=== PATIENT | female | born 1955 | race Caucasian/White ===

== ENCOUNTER 2017-04-24 08:05 | Outpatient (CLI) | payer BC ==
[2017-04-24 08:17] LABS: Basophils % (Auto) 0.8 % (0.0-1.8); Eosinophils % (Auto) 2.5 % (0.0-4.3); Hematocrit 36.8 % (30.3-42.9); Hemoglobin 12.1 gm/dl (10.1-14.3); Mean Corpuscular HGB Conc 33 % (30-34); Mean Corpuscular Hemoglobin 27 pg (28-32); Mean Corpuscular Volume 81 fl (79-97); Platelet Count 183 K/mm3 (140-440); Red Blood Count 4.54 M/mm3 (3.65-5.03); Red Cell Distribution Width 14.9 % (13.2-15.2); White Blood Count 5.7 K/mm3 (4.5-11.0)
[2017-04-24 08:36] LABS: Alanine Aminotransferase 44 units/L (7-56); Albumin/Globulin Ratio 1.2 %; Alkaline Phosphatase 104 units/L (35-129); Anion Gap 14 mmol/L; Blood Urea Nitrogen 18 mg/dL (7-17); Carbon Dioxide 28 mmol/L (22-30); Chloride 105.3 mmol/L (98-107); Cholesterol 151 mg/dL (50-199); Glucose 91 mg/dL (65-100); HDL Cholesterol 65 mg/dL (40-59); LDL Cholesterol,Direct 76 mg/dL (50-130); Potassium 3.9 mmol/L (3.6-5.0); Sodium 143 mmol/L (137-145); Total Protein 7.4 g/dL (6.3-8.2); Triglycerides 53 mg/dL (2-149)
[2017-04-24 11:08] LABS: Bilirubin,Urine NEG (Negative); Blood,Urine MOD (Negative); Ketones,Urine NEG (Negative); Leukocyte Esterase,Urine TR (Negative); Mucus,Urine FEW /HPF; Nitrite,Urine NEG (Negative); Protein,Urine <15 mg/dL mg/dL (Negative); RBC,Urine < 1.0 /HPF (0.0-6.0); Urobilinogen,Urine < 2.0 mg/dL (<2.0)
== END 2017-04-24 08:06 | disposition home or self-care (01) ==
LOC: LAB 08:05
PROVIDERS: ATTEND Family Medicine
DX: I10 Essential (primary) hypertension (principal); E78.2 Mixed hyperlipidemia; R31.1 Benign essential microscopic hematuria; Z79.899 Other long term (current) drug therapy
CPT/HCPCS: 36415; 80053; 80061; 81001; 85025

== ENCOUNTER 2017-10-14 07:09 | Outpatient (CLI) | payer BC ==
--- NOTE | 2017-10-14 09:26 | Mammography Report ---
Bilateral digital screening mammogram including tomosynthesis and CAD. Comparison study is dated October 09, 2016. Findings: There is heterogeneous density of the fiber glandular tissue. There are no suspicious microcalcifications or areas of architectural distortion. In the posterior upper right breast, there is a 5 mm circumscribed round nodular asymmetry which demonstrates benign features and has not changed since the previous study. No additional focal abnormalities are seen. Impression: Stable benign findings. BI-RADS code: 2. Recommendation: Annual screening.
== END 2017-10-14 07:10 | disposition home or self-care (01) ==
LOC: MAMMO 07:09
PROVIDERS: ATTEND Obstetrics & Gynecology
DX: Z12.31 Encounter for screening mammogram for malignant neoplasm of breast (principal)
CPT/HCPCS: 77063; G0202; 77067

== ENCOUNTER 2018-04-21 10:13 | Outpatient (CLI) | payer BC ==
[2018-04-21 11:24] LABS: Basophils % (Auto) 0.7 % (0.0-1.8); Eosinophils # (Auto) 0.1 K/mm3 (0.0-0.4); Eosinophils % (Auto) 1.8 % (0.0-4.3); Hematocrit 38.6 % (30.3-42.9); Hemoglobin 12.6 gm/dl (10.1-14.3); Lymphocytes # (Auto) 2.2 K/mm3 (1.2-5.4); Lymphocytes % (Auto) 37.1 % (13.4-35.0); Mean Corpuscular HGB Conc 33 % (30-34); Mean Corpuscular Hemoglobin 27 pg (28-32); Mean Corpuscular Volume 82 fl (79-97); Monocytes # (Auto) 0.4 K/mm3 (0.0-0.8); Monocytes % (Auto) 6.5 % (0.0-7.3); Platelet Count 195 K/mm3 (140-440); Red Cell Distribution Width 14.7 % (13.2-15.2)
[2018-04-21 11:26] LABS: Bilirubin,Urine NEG (Negative); Blood,Urine MOD (Negative); Color,Urine Yellow (Yellow); Protein,Urine <15 mg/dL mg/dL (Negative); Urobilinogen,Urine < 2.0 mg/dL (<2.0); WBC,Urine < 1.0 /HPF (0.0-6.0)
--- NOTE | 2018-04-21 11:54 | XRay Report ---
ROUTINE CHEST, TWO VIEWS: HISTORY: Hypertension. The trachea, heart, mediastinal contour, lung brown and bony thorax are unremarkable. IMPRESSION: Unremarkable chest x-ray.
[2018-04-21 16:51] LABS: BUN/Creatinine Ratio 24; Blood Urea Nitrogen 17 mg/dL (7-17)
[2018-04-21 16:52] LABS: Alanine Aminotransferase 24 units/L (7-56); Calcium 9.1 mg/dL (8.4-10.2); Chol/HDL Ratio 3.16 %; HDL Cholesterol 66 mg/dL (40-59); Hemolysis Index 4; LDL Cholesterol,Direct 128 mg/dL (50-130)
== END 2018-04-21 10:14 | disposition home or self-care (01) ==
LOC: XRAY 10:13
PROVIDERS: ATTEND Surgery Plastic and Reconstructive Surgery
DX: I10 Essential (primary) hypertension (principal); E78.2 Mixed hyperlipidemia; Z79.899 Other long term (current) drug therapy
CPT/HCPCS: 36415; 71046; 80053; 80061; 81001; 83036; 85025

== ENCOUNTER 2018-11-09 06:58 | Outpatient (CLI) | payer BC ==
--- NOTE | 2018-11-09 14:58 | Mammography Report ---
BILATERAL DIGITAL SCREENING MAMMOGRAM with CAD : 11/09/18 06:58:00 CLINICAL: Routine screening. COMPARISON:10/14/17 FINDINGS: The breasts are heterogeneously dense, which may obscure small masses.A 5.3 x 3.5 x 4.2 cm benign right retroareolar hamartoma is unchanged compared to previous exams. It is mostly fatty with a thin capsule. No new mass, architectural distortion or suspicious calcifications. IMPRESSION: No mammographic evidence of malignancy. BI-RADS CATEGORY: 2 -- Benign RECOMMENDATION: Routine mammographic screening in one year. COMMENT: Patient follow-up letters are generated by our [employer] application.
--- NOTE | 2018-11-10 00:48 | Ultrasound Report ---
FINAL REPORT EXAM: US PELVIC COMPLETE HISTORY: PELVIC MASS LOWER RIGHT QUADRANT TECHNIQUE: Transvaginal imaging was obtained of the pelvis. Comparison is made to the study of 10/11. FINDINGS: The uterus is anteverted measuring 6.1 cm x 2.9 cm x 4.4 cm. The endometrial thickness is 3 mm. In th e posterior wall of the uterus is a partially calcified fibroid measuring 2.2 cm x 2.3 cm x 2 cm. Thi s is not changed significantly since previous study. Additional fibroids are seen on the study. One i s in the anterior wall measuring 2.6 cm x 2.4 cm x 3.5 cm. A smaller fibroid is seen in the posterior wall measuring 1.4 cm x 1.1 cm x 1.1 cm. The ovaries are appropriate size contour and echotexture. The right ovary measures 2 cm x 0.7 cm x 1. 9 cm. The left ovary measures 0.9 cm 1.2 cm x 1.3 cm. Free fluid is not seen IMPRESSION: Multiple fibroids in the uterus as described. 2 additional fibroids are seen in the study since the p revious exam.
--- NOTE | 2018-11-10 01:04 | Ultrasound Report ---
FINAL REPORT EXAM: US TRANSVAGINAL HISTORY: PELVIC MASS LOWER RIGHT QUADRANT TECHNIQUE: Transvaginal imaging was obtained of the pelvis. Comparison is made study of 10/11/2016. FINDINGS: The uterus is anteverted measuring 6.1 cm x 2.9 cm x 4.4 cm. The endometrial thickness is 3 mm. There are multiple fibroids in the uterus. There is fibroid in the posterior wall measuring 2.2 cm x 2.3 c m x 2 cm with shadowing calcifications. This is unchanged the previous study. There additional fibroi ds, 1 of which is in the anterior wall measuring 2.6 cm x 2.4 cm x 3.5 cm. An additional fibroid is s een in the posterior wall measuring 1.4 cm x 1.1 cm x 1.1 cm. An additional small fibroid is seen in the anterior wall measuring 1.3 cm x 1 cm x 1.8 cm. Free fluid is not seen. The ovaries are appropriate size contour and echotexture. The right ovary measures 2 cm x 0.7 cm x 1. 9 cm. The left lobe measures 0.9 cm x 1.2 cm x 1.3 cm. IMPRESSION: Multiple fibroids as described. No adnexal masses or fluid collections.
== END 2018-11-09 06:59 | disposition home or self-care (01) ==
LOC: MAMMO 06:58
PROVIDERS: ATTEND Obstetrics & Gynecology
DX: Z12.31 Encounter for screening mammogram for malignant neoplasm of breast (principal); D25.9 Leiomyoma of uterus, unspecified
CPT/HCPCS: 76830; 76856; 77067

== ENCOUNTER 2019-09-13 08:23 | Outpatient (CLI) | payer BC ==
[2019-09-13 08:51] LABS: Basophils # (Auto) 0.1 K/mm3 (0.0-0.1); Basophils % (Auto) 1.1 % (0.0-1.8); Eosinophils # (Auto) 0.1 K/mm3 (0.0-0.4); Eosinophils % (Auto) 1.8 % (0.0-4.3); Hemoglobin 12.5 gm/dl (10.1-14.3); Lymphocytes # (Auto) 2.1 K/mm3 (1.2-5.4); Mean Corpuscular HGB Conc 33 % (30-34); Mean Corpuscular Volume 82 fl (79-97); Monocytes # (Auto) 0.5 K/mm3 (0.0-0.8); Platelet Count 207 K/mm3 (140-440); Red Blood Count 4.61 M/mm3 (3.65-5.03); Red Cell Distribution Width 14.6 % (13.2-15.2)
[2019-09-13 09:08] LABS: Bilirubin,Urine NEG (Negative); Blood,Urine MOD (Negative); Color,Urine Straw (Yellow); Protein,Urine <15 mg/dL mg/dL (Negative); Urobilinogen,Urine < 2.0 mg/dL (<2.0)
[2019-09-13 09:10] LABS: Alanine Aminotransferase 14 units/L (7-56); Albumin 4.3 g/dL (3.9-5); BUN/Creatinine Ratio 29; Blood Urea Nitrogen 23 mg/dL (7-17); Calcium 9.3 mg/dL (8.4-10.2); Chol/HDL Ratio 3.85 %; HDL Cholesterol 60 mg/dL (40-59); Hemolysis Index 1; LDL Cholesterol,Direct 162 mg/dL (50-130)
[2019-09-13 09:21] LABS: WBC,Urine < 1.0 /HPF (0.0-6.0)
--- NOTE | 2019-09-13 09:23 | XRay Report ---
CHEST 2 VIEWS INDICATION: ANNUAL PHYSICAL EXAM. COMPARISON: 04/21/2018 FINDINGS: Support devices: None. Heart: Within normal limits. Pulmonary vasculature: Normal. Lungs/pleura: No acute air space or interstitial disease. No pneumothorax. Additional findings: Aortic tortuosity unchanged since the last exam. IMPRESSION: 1. No acute findings. 2. Hypertensive changes in the aorta. Signer Name: Willian Kenney MD Signed: 09/13/2019 9:19 AM Workstation Name: [id number]
== END 2019-09-13 08:24 | disposition home or self-care (01) ==
LOC: LAB 08:23
PROVIDERS: ATTEND Family Medicine
DX: Z12.2 Encounter for screening for malignant neoplasm of respiratory organs (principal); Z00.00 Encounter for general adult medical examination without abnormal findings; Z79.899 Other long term (current) drug therapy; I10 Essential (primary) hypertension
CPT/HCPCS: 36415; 71046; 80053; 80061; 81001; 83036; 84443; 85025

== ENCOUNTER 2019-10-13 08:26 | Outpatient (CLI) | payer BC | END 2019-10-13 08:27 | disposition home or self-care (01) | LOC: LAB 08:26 | PROVIDERS: ATTEND Obstetrics & Gynecology | DX: Z12.4 Encounter for screening for malignant neoplasm of cervix (principal); Z11.8 Encounter for screening for other infectious and parasitic diseases; N76.0 Acute vaginitis | CPT/HCPCS: 36415 ==

== ENCOUNTER 2019-11-17 11:57 | Outpatient (CLI) | payer BC ==
--- NOTE | 2019-11-17 13:45 | Mammography Report ---
DIGITAL SCREENING MAMMOGRAM WITH CAD, 11/17/2019 INDICATION: Routine screening mammography. TECHNIQUE: Digital bilateral 2D mammography was obtained in the craniocaudal and mediolateral obliq ue projections. This examination was interpreted with the benefit of Computer-Aided Detection analysi s. COMPARISON: 11/09/2018 and 10/14/2017 FINDINGS: Breast Density: The breasts are heterogeneously dense, which may obscure small masses. There is no evidence of dominant mass, suspicious calcifications or architectural distortion in eithe r breast. IMPRESSION: No mammographic evidence of malignancy. Follow up recommendation: Routine yearly BI-RADS Category 1: Negative. A "normal" or negative report should not discourage follow up or biopsy of a clinically significant f inding. A written summary of these findings will be mailed to the patient. The patient will be entered into a mammography reporting system which will generate a reminder letter for the patient's next appointmen t at the appropriate interval. The [employer] recommends yearly mammograms starting at age 40 and continuing as l katja as a woman is in good health. Breast MRI is recommended for women with an approximate 20-25% or greater lifetime risk of breast cancer, including women with a strong family history of breast or ova ignacio cancer or who have been treated for Hodgkin's disease. Signer Name: Willian Kenney MD Signed: 11/17/2019 1:40 PM Workstation Name: [id number]
== END 2019-11-17 11:58 | disposition home or self-care (01) ==
LOC: MAMMO 11:57
PROVIDERS: ATTEND Obstetrics & Gynecology
DX: Z12.31 Encounter for screening mammogram for malignant neoplasm of breast (principal)
CPT/HCPCS: 77067

== ENCOUNTER 2020-10-18 11:56 | Outpatient (CLI) | payer BC | END 2020-10-18 11:57 | disposition home or self-care (01) | LOC: LAB 11:56 | PROVIDERS: ATTEND Obstetrics & Gynecology | DX: Z01.419 Encounter for gynecological examination (general) (routine) without abnormal findings (principal) | CPT/HCPCS: 36415; 87591 ==

== ENCOUNTER 2020-12-07 12:15 | Outpatient (CLI) | payer BC ==
--- NOTE | 2020-12-07 14:17 | Mammography Report ---
DIGITAL SCREENING MAMMOGRAM WITH CAD, 12/07/2020 CLINICAL INFORMATION / INDICATION: Routine screening mammography. SCREENING MAMMOGRAM TECHNIQUE: Digital bilateral 2D mammography was obtained in the craniocaudal and mediolateral obliqu e projections. This examination was interpreted with the benefit of Computer-Aided Detection analysis . COMPARISON: Prior mammograms 11/17/2019 and 11/09/2018 FINDINGS: Breast Density: The breasts are heterogeneously dense, which may obscure small masses. No dominant mass, suspicious calcifications, or architectural distortion in either breast. There has been no significant change compared with the prior examinations. IMPRESSION: No mammographic evidence of malignancy. Follow up recommendation: Routine yearly BI-RADS Category 1: Negative. A "normal" or negative report should not discourage follow up or biopsy of a clinically significant f inding. A written summary of these findings will be mailed to the patient. The patient will be entered into a mammography reporting system which will generate a reminder letter for the patient's next appointmen t at the appropriate interval. The [employer] recommends yearly mammograms starting at age 40 and continuing as l katja as a woman is in good health. Breast MRI is recommended for women with an approximate 20-25% or greater lifetime risk of breast cancer, including women with a strong family history of breast or ova ignacio cancer or who have been treated for Hodgkin's disease. Signer Name: Joanna Herrera MD Signed: 12/07/2020 2:12 PM Workstation Name: [email or web address]
== END 2020-12-07 12:16 | disposition home or self-care (01) ==
LOC: MAMMO 12:15
PROVIDERS: ATTEND Obstetrics & Gynecology
DX: Z12.31 Encounter for screening mammogram for malignant neoplasm of breast (principal)
CPT/HCPCS: 77067

== ENCOUNTER 2021-01-17 06:59 | Outpatient (CLI) | payer BC ==
[2021-01-17 07:27] LABS: Basophils # (Auto) 0.1 K/mm3 (0.0-0.1); Basophils % (Auto) 1.7 % (0.0-1.8); Eosinophils # (Auto) 0.1 K/mm3 (0.0-0.4); Eosinophils % (Auto) 1.7 % (0.0-4.3); Hematocrit 37.2 % (30.3-42.9); Hemoglobin 12.3 gm/dl (10.1-14.3); Lymphocytes % (Auto) 34.4 % (13.4-35.0); Mean Corpuscular HGB Conc 33 % (30-34); Mean Corpuscular Volume 84 fl (79-97); Monocytes # (Auto) 0.4 K/mm3 (0.0-0.8); Monocytes % (Auto) 7.8 % (0.0-7.3); Platelet Count 200 K/mm3 (140-440); Red Blood Count 4.41 M/mm3 (3.65-5.03); Red Cell Distribution Width 14.4 % (13.2-15.2)
[2021-01-17 07:29] LABS: Bilirubin,Urine NEG (Negative); Blood,Urine SM (Negative); Color,Urine Straw (Yellow); Protein,Urine <15 mg/dL mg/dL (Negative); Urobilinogen,Urine < 2.0 mg/dL (<2.0)
[2021-01-17 07:44] LABS: Alanine Aminotransferase 52 units/L (7-56); Albumin 4.2 g/dL (3.9-5); BUN/Creatinine Ratio 24; Blood Urea Nitrogen 22 mg/dL (7-17); Calcium 8.9 mg/dL (8.4-10.2); Chol/HDL Ratio 2.91 %; HDL Cholesterol 67 mg/dL (40-59); Hemolysis Index 15; LDL Cholesterol,Direct 129 mg/dL (50-130)
--- NOTE | 2021-01-17 07:51 | XRay Report ---
CHEST 2 VIEWS INDICATION: HYPERTENSION,SCREENING FOR RESPIRATORY ORGAN CANCER. COMPARISON: 09/13/2019 FINDINGS: Support devices: None. Heart: Within normal limits. Lungs/pleura: No acute air space or interstitial disease. No pneumothorax. Additional findings: None. IMPRESSION: Unremarkable chest films. No change since 09/13/2019. Signer Name: Gurmeet Riley Jr, MD Signed: 01/17/2021 7:46 AM Workstation Name: [id number]
== END 2021-01-17 07:00 | disposition home or self-care (01) ==
LOC: XRAY 06:59
PROVIDERS: ATTEND Family Medicine
DX: Z00.00 Encounter for general adult medical examination without abnormal findings (principal); Z13.1 Encounter for screening for diabetes mellitus; Z79.899 Other long term (current) drug therapy
CPT/HCPCS: 36415; 71046; 80053; 80061; 81001; 83036; 84443; 85025

== ENCOUNTER 2021-02-15 09:38 | Outpatient (CLI) | payer BC ==
--- NOTE | 2021-02-15 14:52 | Mammography Report ---
DEXA BONE DENSITY SCAN INDICATION / CLINICAL INFORMATION: SCREENING FOR OSTEOPOROSIS Z13.820 /Z78.0 MENOPAUSE. 65 years Female COMPARISON: None available. LUMBAR SPINE, L1-L4: - Bone mineral density (BMD) = 0.807 g/cm2. - T-score = -3.1 - Z-score = -1.1 Change (%) since most recent prior (if available): None available. LEFT HIP, : - Bone mineral density (BMD) = 0.695 g/cm2. - T-score = -1.8 - Z-score = -0.5 Change (%) since most recent prior (if available): None available. IMPRESSION: 1. WHO Classification: Osteoporosis. Fracture Risk: High. Note: 10-Year Fracture Risk (FRAX) not reported. This DEXA unit lacks FRAX functionality. BMD Reporting Guidelines (ISCD, 2015) BMD Reporting in Postmenopausal Women and in Men Age 50 and Older - T-scores are preferred. - The WHO densitometric classification is applicable. BMD Reporting in Females Prior to Menopause and in Males Younger Than Age 50 - Z-scores, not T-scores, are preferred. This is particularly important in children. - A Z-score of -2.0 or lower is defined as below the expected range for age, and a Z-score above -2.0 is within the expected range for age. - Osteoporosis cannot be diagnosed in men under age 50 on the basis of BMD alone. - The WHO diagnostic criteria may be applied to women in the menopausal transition. http://www.iscd.org/official-positions/8120-bjxq-wsphcskn-positions-adult/ Signer Name: Christiano Chang MD Signed: 02/15/2021 2:48 PM Workstation Name: [id number]
== END 2021-02-15 09:39 | disposition home or self-care (01) ==
LOC: SPVWC 09:38
PROVIDERS: ATTEND Family Medicine
DX: Z13.820 Encounter for screening for osteoporosis (principal); M81.0 Age-related osteoporosis without current pathological fracture; Z78.0 Asymptomatic menopausal state
CPT/HCPCS: 77080

== ENCOUNTER 2021-12-25 08:05 | Emergency (ER) | payer BC ==
[2021-12-25] MEDS ORDERED: LIDOCAINE 1%/EPINEPHRINE 1:100,000 VIAL (20 ML) INFILTRATI NR (09:15)
== END 2021-12-25 09:42 | disposition home or self-care (01) ==
LOC: ED 08:05
DX: S61.219A Laceration without foreign body of unspecified finger without damage to nail, initial encounter (principal); X58.XXXA Exposure to other specified factors, initial encounter; Y93.89 Activity, other specified; Y92.89 Other specified places as the place of occurrence of the external cause; Y99.8 Other external cause status
CPT/HCPCS: 99282

== ENCOUNTER 2021-12-26 12:03 | Outpatient (CLI) | payer BC ==
[2021-12-26 22:30] LABS: Hepatitis B Surface Antigen Non-Reactive (Negative); Hepatitis C Virus Antibody Non-Reactive (NonReactive)
== END 2021-12-26 12:04 | disposition home or self-care (01) ==
LOC: LAB 12:03
PROVIDERS: ATTEND Obstetrics & Gynecology
DX: Z01.419 Encounter for gynecological examination (general) (routine) without abnormal findings (principal)
CPT/HCPCS: 36415; 80074; 86592; 86689

== ENCOUNTER 2022-01-01 10:32 | Emergency (ER) | payer BC ==
[2022-01-01 12:12] VITALS: BP 153/67
--- NOTE | 2022-01-01 12:38 | Emergency Department Report ---
Suture/Staple Removal - [facility] Chief Complaint: Laceration/Recheck/Suture Stated Complaint: SUTURE REMOVAL Time Seen by Provider: 01/01/22 12:13 When Sutures or Erasto Placed: 5-7 Days Ago Wound Location: Right index finger; denies pain, swelling, drainage ED Review of Systems ROS: Stated complaint: SUTURE REMOVAL Other details as noted in HPI Constitutional: denies: chills, fever, malaise Musculoskeletal: denies: joint swelling, arthralgia Skin: denies: rash, lesions, change in color Neurological: denies: numbness, paresthesias ED Past Medical Hx - Past Medical History Previous Medical History?: Yes Additional medical history: Heart Murmur - Surgical History Past Surgical History?: Yes Additional Surgical History: eye surgery, ectopic - Social History Smoking Status: Never Smoker Substance Use Type: None - Medications Home Medications: Home Medications Medication Instructions Recorded Confirmed Last Taken Type Ibuprofen [Motrin] 800 mg PO Q8HR PRN #20 tablet 08/06/16 Unknown Rx Suture Removal Exam - Exam General: Vital signs noted. No distress. Alert and acting appropriately. Wound: No Pathologic Erythema, No Tenderness, No Drainage, No Pus, No Wound Dehiscence Other Systems: All other systems reviewed and are unremarkable. 2 simple suture noted in dorsal right index finger; no erythema; no purulent drainage; sutures removed; pt tolerated procedure well without any immediate complications ED Course Vital Signs 01/01/22 12:11 Temperature 98.2 F Pulse Rate 53 L Respiratory 18 Rate Blood Pressure 153/67 O2 Sat by Pulse 98 Oximetry Critical care attestation.: If time is entered above; I have spent that time in minutes in the direct care of this critically ill patient, excluding procedure time. ED Disposition Clinical Impression: Encounter for removal of sutures Disposition: HOME / SELF CARE / HOMELESS Is pt being admited?: No Condition: Stable Instructions: Wound Closure Removal, Care After Referrals: PRIMARY CARE, [Primary Care Provider] - 3-5 Days
== END 2022-01-01 12:50 | disposition home or self-care (01) ==
LOC: ED 10:32
DX: S61.210D Laceration without foreign body of right index finger without damage to nail, subsequent encounter (principal); Z98.890 Other specified postprocedural states; Z79.899 Other long term (current) drug therapy; X58.XXXD Exposure to other specified factors, subsequent encounter
CPT/HCPCS: 99282

== ENCOUNTER 2022-01-14 08:22 | Outpatient (CLI) | payer BC ==
--- NOTE | 2022-01-15 11:21 | Mammography Report ---
DIGITAL SCREENING MAMMOGRAM WITH CAD, 01/14/2022 CLINICAL INFORMATION / INDICATION: Routine screening mammography. SCREENING MAMMOGRAM TECHNIQUE: Digital bilateral 2D mammography was obtained in the craniocaudal and mediolateral obliqu e projections. This examination was interpreted with the benefit of Computer-Aided Detection analysis . COMPARISON: 10/14/2017 through 12/07/2020. FINDINGS: Breast Density: The breasts are heterogeneously dense, which may obscure small masses. No dominant mass, suspicious calcifications, or architectural distortion in either breast. IMPRESSION: No mammographic evidence of malignancy. Follow up recommendation: Routine yearly BI-RADS Category 1: NEGATIVE A "normal" or negative report should not discourage follow up or biopsy of a clinically significant f inding. A written summary of these findings will be mailed to the patient. The patient will be entered into a mammography reporting system which will generate a reminder letter for the patient's next appointmen t at the appropriate interval. The [employer] recommends yearly mammograms starting at age 40 and continuing as l katja as a woman is in good health. Breast MRI is recommended for women with an approximate 20-25% or greater lifetime risk of breast cancer, including women with a strong family history of breast or ova ignacio cancer or who have been treated for Hodgkin's disease. Signer Name: Mac Roca MD Signed: 01/15/2022 11:16 AM Workstation Name: [id number]
== END 2022-01-14 08:23 | disposition home or self-care (01) ==
LOC: SPVWC 08:22
PROVIDERS: ATTEND Obstetrics & Gynecology
DX: Z12.31 Encounter for screening mammogram for malignant neoplasm of breast (principal)
CPT/HCPCS: 77067

== ENCOUNTER 2022-02-07 10:00 | Outpatient (CLI) | payer BC ==
[2022-02-07 11:45] LABS: Basophils # (Auto) 0.1 K/mm3 (0.0-0.1); Eosinophils # (Auto) 0.1 K/mm3 (0.0-0.4); Eosinophils % (Auto) 1.4 % (0.0-4.3); Hematocrit 37.3 % (30.3-42.9); Hemoglobin 12.5 gm/dl (10.1-14.3); Lymphocytes # (Auto) 2.1 K/mm3 (1.2-5.4); Lymphocytes % (Auto) 34.5 % (13.4-35.0); Mean Corpuscular HGB Conc 34 % (30-34); Mean Corpuscular Volume 86 fl (79-97); Monocytes # (Auto) 0.4 K/mm3 (0.0-0.8); Platelet Count 231 K/mm3 (140-440); Red Blood Count 4.34 M/mm3 (3.65-5.03); Red Cell Distribution Width 14.9 % (13.2-15.2)
[2022-02-07 11:48] LABS: Bilirubin,Urine NEG (Negative); Blood,Urine MOD (Negative); Color,Urine Yellow (Yellow); Protein,Urine <15 mg/dL mg/dL (Negative); Urobilinogen,Urine < 2.0 mg/dL (<2.0)
[2022-02-07 11:55] LABS: Alanine Aminotransferase 17 units/L (7-56); Albumin 4.2 g/dL (3.9-5); BUN/Creatinine Ratio 26; Blood Urea Nitrogen 21 mg/dL (7-17); Calcium 8.9 mg/dL (8.4-10.2); Hemolysis Index 13
--- NOTE | 2022-02-07 12:01 | XRay Report ---
CHEST 2 VIEWS INDICATION / CLINICAL INFORMATION: Z79.899 HTN. COMPARISON: 01/17/2021 FINDINGS: SUPPORT DEVICES: None. HEART / MEDIASTINUM: No significant abnormality. LUNGS / PLEURA: No significant pulmonary or pleural abnormality. No pneumothorax. ADDITIONAL FINDINGS: No significant additional findings. IMPRESSION: 1. No acute findings. Signer Name: Sam Farfan MD Signed: 02/07/2022 11:56 AM Workstation Name: [id number]
[2022-02-07 13:32] LABS: Chol/HDL Ratio 3.16 %
== END 2022-02-07 10:01 | disposition home or self-care (01) ==
LOC: LAB 10:00
PROVIDERS: ATTEND Family Medicine
DX: Z13.1 Encounter for screening for diabetes mellitus (principal); Z00.00 Encounter for general adult medical examination without abnormal findings; I10 Essential (primary) hypertension; Z79.899 Other long term (current) drug therapy
CPT/HCPCS: 36415; 71046; 80053; 80061; 81001; 83036; 84443; 85025; 86803

== ENCOUNTER 2022-02-26 08:39 | Outpatient (CLI) | payer BC ==
--- NOTE | 2022-02-27 01:43 | Treadmill Report ---
DATE OF SERVICE: 02/26/2022 TREADMILL STRESS TEST Abnormal EKG. Baseline rhythm is sinus bradycardia with nonspecific ST-Ts. Baseline heart rate was 51. Baseline blood pressure 160/80. The patient exercised on Jeff protocol for 6 minutes. The patient achieved a max predicted heart rate of 100%, 155 beats per minute. Max blood pressure is 195/95. There were no EKG changes or arrhythmias suggestive of ischemia. SUMMARY: 1. Negative treadmill EKG. 2. Fair exercise capacity 6 minutes Jeff protocol. 3. No exaggerated BP response to exercise. 4. There were no EKG changes or arrhythmias suggestive of ischemia. TID: [id number] RECEIPT: [id number] VRM/PRE
--- NOTE | 2022-03-01 10:13 | Treadmill Report ---
[facility] Test Date: 2022-02-26 Test Time: 10:59:00 Pat Name: JERI SALCEDO Department: Room: Gender: F Event Attendant: Marlene Littlejohn : 1955 Requested By: LYLY GARIBAY Order Number: [id number] Reading MD: Ned Washington Interpretive Statements see dictated report Electronically Signed On 03-01-2022 10:13:16 EDT by Ned Washington
== END 2022-02-26 08:40 | disposition home or self-care (01) ==
LOC: CARD 08:39
PROVIDERS: ATTEND Family Medicine
DX: R94.31 Abnormal electrocardiogram [ECG] [EKG] (principal); R00.1 Bradycardia, unspecified
CPT/HCPCS: 93017

== ENCOUNTER 2022-05-04 09:58 | Emergency (ER) | payer OTHER, BC ==
[2022-05-04 10:02] VITALS: BP 137/77
--- NOTE | 2022-05-04 11:48 | Emergency Department Report ---
ED Medical Clearance HPI - General Chief complaint: Medical Clearance Stated complaint: NEEDLE STICK IN OR Time Seen by Provider: 05/04/22 10:17 Source: patient Mode of arrival: Ambulatory - History of Present Illness Initial comments: 66-year-old black female presents to the emergency department for evaluation after accidental needlestick in the emergency department. 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 She states that the needle being used was a solid suture needle likely a PS2 and she did not notice any blood or tissue on the needle. Patient states that she is up-to-date on her immunizations including Tdap and hepatitis B vaccines. She was sent to the emergency department for further evaluation. Complaint: other (Accidental needlestick in the OR) -: Sudden Reason for Medical Clearance: other Place: work Alledged Intoxication: No Associated Symptoms: denies: chest pain, shortness of breath, fever/chills Treatments Prior to Arrival: none Home medications: Previous Rx's Medication Instructions Recorded Last Taken Type Ibuprofen [Motrin] 800 mg PO Q8HR PRN #20 tablet 08/06/16 Unknown Rx Allergies/Adverse reactions: Allergies Allergy/AdvReac Type Severity Reaction Status Date / Time No Known Allergies Allergy Verified 05/04/22 10:02 ED Review of Systems ROS: Stated complaint: NEEDLE STICK IN OR Other details as noted in HPI Comment: All other systems reviewed and negative Constitutional: denies: chills, fever Eyes: denies: vision change Respiratory: denies: shortness of breath Cardiovascular: denies: chest pain Neurological: denies: headache Hematological/Lymphatic: denies: easy bleeding, easy bruising, swollen glands ED Past Medical Hx - Past Medical History Additional medical history: Heart Murmur - Surgical History Additional Surgical History: eye surgery, ectopic - Social History Smoking Status: Never Smoker Substance Use Type: None - Medications Home Medications: Home Medications Medication Instructions Recorded Confirmed Last Taken Type Ibuprofen [Motrin] 800 mg PO Q8HR PRN #20 tablet 08/06/16 Unknown Rx ED Physical Exam - General Limitations: No Limitations General appearance: alert, in no apparent distress - Head Head exam: Present: atraumatic, normocephalic - Eye Eye exam: Present: normal appearance. Absent: conjunctival injection - Neck Neck exam: Present: normal inspection - Respiratory Respiratory exam: Present: normal lung sounds bilaterally. Absent: respiratory distress, wheezes, rales, rhonchi, stridor, chest wall tenderness - Cardiovascular Cardiovascular Exam: Present: regular rate, normal heart sounds - GI/Abdominal GI/Abdominal exam: Present: soft, normal bowel sounds. Absent: distended, tenderness, guarding, rebound, rigid - Extremities Exam Extremities exam: Absent: normal inspection - Expanded Upper Extremity Exam Left Hand Wrist exam: Present: tenderness, laceration, erythema. Absent: normal inspection, swelling, abrasion, nail avulsion, subungual hematoma Hand L/R Front: 1 - Positive: laceration (1 cm) Vascular: Present: normal capillary refill, radial pulse. Absent: vascular compromise - Back Exam Back exam: Present: normal inspection - Neurological Exam Neurological exam: Present: alert, oriented X3 - Psychiatric Psychiatric exam: Present: normal affect, normal mood - Skin Skin exam: Present: warm, dry, normal color ED Course Vital Signs 05/04/22 10:00 Temperature 98 F Pulse Rate 60 Respiratory 16 Rate Blood Pressure 137/77 [Left] O2 Sat by Pulse 99 Oximetry ED Medical Decision Making - Medical Decision Making 66-year-old black female presents to the emergency department for evaluation after accidental needlestick in the emergency department. 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 She states that the needle being used was a solid suture needle likely a PS2 and she did not notice any blood or tissue on the needle. Patient states that she is up-to-date on her immunizations including Tdap and hepatitis B vaccines. She was sent to the emergency department for further evaluation. Physical exam noted to show 1 cm laceration secondary to needle stick. Small amount of bleeding was noted. Patient was instructed to wash area thoroughly with soap and water. Patient stated that she has completed hepatitis B vaccination series in her Tdap is up-to-date. After further investigation into source patient's chart, it was noted that source patient tested negative for hepatitis B, hepatitis C, and HIV during her . It is noted that needle used to stitch was a solid needle so small chance of needle care in tissue and patient states that she did not see a blood on needle. Blood was drawn from [facility] for post exposure protocol including hepatitis panel and rapid HIV. Information reviewed with patient, and she has opted not to take the PEP regimen. Nursing supervisor filter assembly was notified per ER charge nurse regarding incident with plan to speak with patient about being retested for HIV and hepatitis B. Patient was advised to follow-up in [facility] on Friday for further management. She was advised to return to the emergency department with any concerning symptoms. She verbalized understanding of and agreement with plan of care. ED Disposition Clinical Impression: Needle stick injury of finger of left hand Disposition: HOME / SELF CARE / HOMELESS Is pt being admited?: No Does the pt Need Aspirin: No Condition: Stable Instructions: Needlestick and Sharps Injury Additional Instructions: Follow-up with [facility] on Friday morning as discussed. Referrals: JOSIAH ARENAS MD [Staff Physician] - 3-5 Days Time of Disposition: 11:48
[2022-05-04 15:25] LABS: Hepatitis B Surface Antigen Non-Reactive (Negative); Hepatitis C Virus Antibody Non-Reactive (NonReactive)
== END 2022-05-04 15:12 | disposition home or self-care (01) ==
LOC: ED 09:58
DX: S61.217A Laceration without foreign body of left little finger without damage to nail, initial encounter (principal); W22.8XXA Striking against or struck by other objects, initial encounter; Y93.89 Activity, other specified; Y92.89 Other specified places as the place of occurrence of the external cause; Y99.8 Other external cause status
CPT/HCPCS: 36415; 80074; 87806; 99283